=== PATIENT | female | born 1985 | race African-American/Black ===

== ENCOUNTER 2021-08-11 16:02 | Emergency (ER) | payer OTHER, SELFPAY ==
[2021-08-11 16:07] VITALS: BP 135/87; PULSE 87; RESP 16; TEMP 36.4; O2SAT 97
--- NOTE | 2021-08-11 19:36 | ED.GENADULT ---
HPI - General Adult General Chief complaint: Dental/Oral Stated complaint: lower left toothache Time Seen by Provider: 08/11/21 18:48 Source: patient and RN notes reviewed Mode of arrival: ambulatory Limitations: no limitations History of Present Illness HPI narrative: Patient is a 36-year-old female who presents to emergency department for evaluation of dental pain noting gross dental caries and history of dental abscesses and infections notes over the last 2 days she has had increasing pain with nausea has not been seen for this does have a dentist to follow with denies fever chills nausea vomiting or other URI symptoms Review of Systems Review of Systems: All systems reviewed & are unremarkable except as noted in HPI and below Exam Narrative: GENERAL: Well-appearing, well-nourished, and in no acute distress. HEAD: Normocephalic, atraumatic. EYES: PERRLA and EOMI. ENT: Nares clear, no rhinorrhea or epistaxis. Mucous membranes moist. Oropharynx without tonsillar hypertrophy exudate or other lesions. Patient with gross dental caries no space-occupying lesions floor the mouth is soft uvula is midline NECK: Supple. No adenopathy or masses. CHEST: Clear to auscultation. No respiratory distress. No wheezes rales or rhonchi HEART: Regular rate and rhythm. No murmur heard. EXTREMITIES: Normal range of motion. No edema. SKIN: Warm, dry, no rash. NEURO: No focal deficits. Alert and oriented x3. PSYCH: Normal mood and affect. Course Course Emergency Course: Patient in the room in no distress aware of case findings treatment plan and diagnosis agreeing to follow-up as instructed or to return if symptoms worsen or concerns Vital Signs Vital signs: Vital Signs Temperature 97.6 F 08/11/21 16:07 Pulse Rate 87 08/11/21 16:07 Respiratory Rate 16 08/11/21 16:07 Blood Pressure 135/87 08/11/21 16:07 Pulse Oximetry 97 08/11/21 16:07 Temperature 97.6 F 08/11/21 16:07 Pulse Rate 87 08/11/21 16:07 Respiratory Rate 16 08/11/21 16:07 Blood Pressure 135/87 08/11/21 16:07 Pulse Oximetry 97 08/11/21 16:07 Medical Decision Making [facility] Narrative Medical decision making narrative: Patient in the room nondistressed will be treated with medications and given reasons to return is afebrile nontoxic-appearing felt appropriate for outpatient reevaluation Vital Signs Vital Signs: Vital Signs Temperature 97.6 F 08/11/21 16:07 Pulse Rate 87 08/11/21 16:07 Respiratory Rate 16 08/11/21 16:07 Blood Pressure 135/87 08/11/21 16:07 Pulse Oximetry 97 08/11/21 16:07 Temperature 97.6 F 08/11/21 16:07 Pulse Rate 87 08/11/21 16:07 Respiratory Rate 16 08/11/21 16:07 Blood Pressure 135/87 08/11/21 16:07 Pulse Oximetry 97 08/11/21 16:07 Discharge Plan Discharge Clinical Impression: Dental abscess Patient Disposition: Home, Self-Care Condition: Stable Instructions: Antibiotic Form, Dental Abscess (ED) Additional Instructions: Follow-up with dentistry in the next 7 days for reevaluation Return if symptoms worsen or concerns or any increase in redness swelling pain fever over 100.5 vomiting weakness unable to swallow or open the mouth Stay well-hydrated Only take medications as directed Prescriptions: New amoxicillin 500 mg capsule 500 mg PO Q8H 10 Days Qty: 30 RF: 0 hydrocodone-acetaminophen 5-325 mg tablet 1 tablet PO Q6H PRN (Reason: pain) Qty: 5 RF: 0 ibuprofen [IBU] 600 mg tablet 600 mg PO QID PRN (Reason: fever or pain) Qty: 7 RF: 0 chlorhexidine gluconate [Peridex] 0.12 % mouthwash 15 ml buccal BID Qty: 1500 RF: 0 Follow-up/Referrals: PHYSICIAN,[employer] [Primary Care Provider] - Stand Alone Forms: Work/School Release IP
[2021-08-11] MEDS: HYDROcodone/acetaminophen (*CRX) 5-325 MG TABLET 1 TAB PO (19:54)
== END 2021-08-11 20:00 | disposition home or self-care (01) ==
PROVIDERS: Emergency Provider Emergency Medicine
DX: K04.7 Periapical abscess without sinus (principal)
CPT/HCPCS: 99283; A9270